=== PATIENT | male | born 1965 | race Caucasian/White ===

== ENCOUNTER 2017-10-09 11:21 | Inpatient (IN) | payer SELFPAY ==
[~2017-10-09] VITALS: Ht 185.4 cm; Wt 110.0 kg
--- NOTE | 2017-10-09 11:36 | PD ---
HPI Chief Complaint: Injury Time Seen by Provider: 11:34 Travel History International Travel<30 days: No Contact w/Intl Traveler<30days: No History of Present Illness HPI 52-year-old male presents to the ED via EMS for evaluation of 1010 left lower leg pain. Onset just before arrival after the patient was pushing a tool chest , lost control and it fell, pinning his leg between the bumper of a car. 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 He denies numbness, tingling, weakness of the extremity. He has not been ambulatory since the accident. He is unsure of the date of his last tetanus immunization. [facility] Social History Tobacco Use: No Allergies-Medications (Allergen,Severity, Reaction): Coded Allergies: Penicillins (Verified Allergy, Unknown, 10/09/17) Review of Systems Except as stated in HPI: all other systems reviewed are Neg Physical Exam Narrative GENERAL: Well-nourished, well-developed white male in no acute distress. SKIN: Focused skin assessment warm/dry. 4 cm laceration on the midline of the proximal tib-fib. No active bleeding. HEAD: Normocephalic. EYES: No scleral icterus. No injection or drainage. NECK: Supple, trachea midline. No JVD or lymphadenopathy. CARDIOVASCULAR: Regular rate and rhythm without murmurs, gallops, or rubs. RESPIRATORY: Breath sounds clear and equal bilaterally. No accessory muscle use. GASTROINTESTINAL: Abdomen soft, non-tender, nondistended. MUSCULOSKELETAL: No cyanosis, or edema. FOCUSED LEFT LOWER EXTREMITY EXAM: 2+ DP pulse. Patient is able to wiggle the toes. Sensation intact to light touch distally. Flexion of the ankle elicits pain in the tib-fib. Compartments of the calf are soft. Knee nontender. Exam somewhat limited by patient's pain. BACK: Nontender without obvious deformity. No CVA tenderness. Data Data Last Documented VS Vital Signs Date Time Temp Pulse Resp B/P (MAP) Pulse Ox O2 Delivery O2 Flow Rate FiO2 10/09/17 12:01 89 18 100 Room Air 10/09/17 11:47 97.9 161/103 (122) Orders Orders Iv Access Insert/Monitor (10/09/17 11:32) Oximetry (10/09/17 11:32) Ice/Cold Pack (10/09/17 11:32) Ecg Monitoring (10/09/17 11:32) Ondansetron Inj (Zofran Inj) (10/09/17 11:45) Sodium Chloride 0.9% Flush (Ns Flush) (10/09/17 11:45) Hydromorphone Pf Inj (Dilaudid Pf Inj) (10/09/17 11:45) Sodium Chlor 0.9% 1000 Ml Inj (Ns 1000 M (10/09/17 11:45) NPO (10/09/17 11:32) Lidocaine 1% Inj (Xylocaine 1% Inj) (10/09/17 11:45) Tibia/Fibula (Ap/Lat) (10/09/17 11:32) Hydromorphone Pf Inj (Dilaudid Pf Inj) (10/09/17 11:45) Tetanus/Diphtheria Tox Adult (Tetanus/Di (10/09/17 12:00) Lidocaine 1% Inj (Xylocaine 1% Inj) (10/09/17 12:15) Electrocardiogram (10/09/17 12:16) Complete Blood Count With Diff (10/09/17 12:16) Comprehensive Metabolic Panel (10/09/17 12:16) Prothrombin Time / Inr (Pt) (10/09/17 12:16) Act Partial Throm Time (Ptt) (10/09/17 12:16) Urinalysis - C+S If Indicated (10/09/17 12:16) Type And Screen (10/09/17 12:16) Chest, Single Ap (10/09/17 12:16) Gentamicin Inj (Gentamicin Inj) (10/09/17 12:30) Cefazolin 2 Gm Premix (Ancef 2 Gm Premix (10/09/17 12:30) Consult Orthopedic (10/09/17 ) Labs Laboratory Tests Test 10/09/17 12:26 MDM Medical Decision Making Medical Screen Exam Complete: Yes Emergency Medical Condition: Yes Differential Diagnosis Tib-fib fracture versus laceration versus open fracture versus compartment syndrome versus need for tetanus immunization versus other Narrative Course 52-year-old male presents to the ED via EMS for evaluation of 10/10 left lower leg pain. Onset just before arrival after the patient was pushing a tool chest , lost control and it fell, pinning his leg between the bumper of a car. 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 Unsure of last tetanus immunization. Vitals reviewed. Patient's tachycardic and hypertensive on presentation. Physical exam reveals a 4 cm open wound of the anterior aspect of the proximal tibia. The pelvis of the calf are soft. Pain elicited with attempted flexion of the ankle. 2+ DP pulse, sensation intact to light touch distally. IV was established. Patient was administered 0.5 mg Dilaudid, 4 mg Zofran and 1 L normal saline. Tetanus immunization was updated. Patient was admitted nothing by mouth. X-ray left tib-fib reveals comminuted proximal tibial fracture per radiology read. I explored the wound and anterior aspect of the tibia and this is an open fracture. I discussed the results of the x-ray with the patient as well as the need for surgical intervention. Patient is agreeable with the plan. Preoperative testing and lab work ordered and pending. EKG rate 89, sinus rhythm. CT interval 169, QRS 112, QTC 408. Incomplete RBBB. Q waves V1V2. Reviewed by Dr. Stone. Patient was administered 2 mg Ancef and 80 mg gentamicin IV. Patient ate eggs and grits with a cup of coffee around 7 AM today. I spoke with Dr. Smith who requests the patient stay nothing by mouth. He plans surgery today. Dr. Stone spoke with Dr. Gotti who states this patient is appropriate for medicine admission. I spoke with Dr. Olson who agrees to accept the patient to the medicine service. Please see medicine and orthopedic notes for disposition. Marjorie Roth Oct 09, 2017 11:36
[2017-10-09] MEDS ORDERED: HYDROmorphone HCL PF 2 MG/ML VIAL IV PUSH ONE ×2 (11:45→14:00)
[2017-10-09] MEDS ORDERED: HYDROmorphone HCL PF 1 MG/ML VIAL IVS ONE (11:45)
[2017-10-09] MEDS ORDERED: LIDOCAINE HCL 1% 30 ML VIAL INFIL ONE (11:45)
[2017-10-09] MEDS ORDERED: TETANUS/DIPHTHERIA TOXOID ADULT 0.5 ML VIAL IM ONE ×2 (11:45→12:00)
[2017-10-09] MEDS ORDERED: SODIUM CHLORIDE 0.9% FLUSH 10 ML FLUSH IVF PRN (11:45)
[2017-10-09] MEDS ORDERED: SODIUM CHLOR 0.9% 1000 ML INJ 1,000 ML IV ONE (11:45)
[2017-10-09] MEDS ORDERED: ONDANSETRON HCL 4 MG/2 ML VIAL IVP ONE (11:45)
[2017-10-09 11:46] VITALS: RESP 18; O2SAT 98
[2017-10-09 11:47] VITALS: BP 161/103; PULSE 98; RESP 18; TEMP 97.9; O2SAT 98
[2017-10-09] MEDS ORDERED: SUCCINYLCHOLINE CHLORIDE 200 MG/10 ML VIAL IV ONE (12:00)
[2017-10-09] MEDS ORDERED: PROPOFOL 200 MG/20 ML AMP IV ONE (12:00)
[2017-10-09] MEDS ORDERED: ONDANSETRON HCL 4 MG/2 ML VIAL IV ONE (12:00)
[2017-10-09] MEDS ORDERED: LIDOCAINE HCL 1% PF 5 ML SYRINGE OTHER ONE (12:00)
[2017-10-09] MEDS ORDERED: KETOROLAC TROMETHAMINE 30 MG/ML (IVP) VIAL IV PUSH ONE (12:00)
[2017-10-09] MEDS ORDERED: DEXAMETHASONE SOD PHOS 4 MG/ML VIAL IV ONE (12:00)
[2017-10-09] MEDS ORDERED: LACTATED RINGER'S 1000 ML INJ 1,000 ML IV ONE (12:00)
[2017-10-09] MEDS ORDERED: LIDOCAINE HCL 1% 20 ML VIAL INFIL ONE (12:15)
--- NOTE | 2017-10-09 12:15 | RADRPT ---
EXAM DATE/TIME: 10/09/2017 11:52 [facility] COMPARISON: No previous studies available for comparison. INDICATIONS : Left lower leg pain; pinned between car and tool box. MEDICAL HISTORY : None. SURGICAL HISTORY : None. ENCOUNTER: Initial ACUITY: 1 day PAIN SCORE: 10/10 LOCATION: Left lower leg. FINDINGS: 4 views of the left lower leg reveal an acute comminuted fracture involving the proximal tibial metad iaphysis. No significant angulation or distraction. No intra-articular extension. The fibula is intac t. No radiopaque foreign bodies. CONCLUSION: Acute comminuted roximal tibial fracture. Aamir Maloney Jr., MD on October 09, 2017 at 12:11 Board Certified Radiologist. This report was verified electronically.
[2017-10-09] MEDS ORDERED: ceFAZolin 2 GM PREMIX 50 ML IV ONE (12:30)
[2017-10-09] MEDS ORDERED: GENTAMICIN INJ 80 MG in SODIUM CHLORIDE 0.9% INJ 100 ML IV ONE (12:30)
[2017-10-09 12:45] LABS: AUTOMATED NEUTROPHIL # 11.4 TH/MM3 (1.8-7.7); BASOPHIL % 0.3 % (0.0-2.0); EOSINOPHIL # 0.1 TH/MM3 (0-0.4); HEMATOCRIT 32.6 % (39.0-51.0); HEMOGLOBIN 11.3 GM/DL (13.0-17.0); LYMPH % 9.1 % (9.0-44.0); LYMPHOCYTE # 1.3 TH/MM3 (1.0-4.8); MEAN CELL VOLUME 85.4 FL (80.0-100.0); MEAN CORPUSCULAR HEMOGLOBIN 29.5 PG (27.0-34.0); MEAN CORPUSCULAR HGB CONC 34.6 % (32.0-36.0); MEAN PLATELET VOLUME 7.2 FL (7.0-11.0); NEUT % 82.6 % (16.0-70.0); PLATELET COUNT 221 TH/MM3 (150-450); RED BLOOD COUNT 3.82 MIL/MM3 (4.50-5.90); RED CELL DISTRIBUTION WIDTH 13.7 % (11.6-17.2); WHITE BLOOD COUNT 13.8 TH/MM3 (4.0-11.0)
[2017-10-09 12:54] LABS: INTERNATIONAL NORMALIZED RATIO 1.1 RATIO; PROTHROMBIN TIME - PATIENT 10.8 SEC (9.8-11.6)
[2017-10-09] MEDS ORDERED: ACETAMINOPHEN 325 MG TAB PO PRN (13:15)
[2017-10-09] MEDS ORDERED: LACTULOSE SYRUP 20 GM/30 ML CUP PO PRN (13:15)
[2017-10-09] MEDS ORDERED: HYDROmorphone HCL PF 1 MG/ML VIAL IV PUSH PRN ×2 (13:15)
[2017-10-09] MEDS ORDERED: oxyCODONE/ACETAMINOPHEN 10 MG/325 MG TAB PO PRN (13:15)
[2017-10-09] MEDS ORDERED: SODIUM CHLORIDE 0.9% FLUSH 10 ML FLUSH IV FLUSH PRN (13:15)
[2017-10-09] MEDS ORDERED: MAGNESIUM HYDROXIDE SUSP 30 ML CUP PO PRN (13:15)
[2017-10-09] MEDS ORDERED: HYDROmorphone HCL 2 MG TAB PO PRN (13:15)
[2017-10-09] MEDS ORDERED: SENNOSIDES 8.6 MG TAB PO PRN (13:15)
[2017-10-09] MEDS ORDERED: oxyCODONE/ACETAMINOPHEN 5 MG/325 MG TAB PO PRN (13:15)
[2017-10-09] MEDS ORDERED: NALOXONE HCL 0.4 MG/ML AMP IV PUSH PRN ×2 (13:15)
[2017-10-09] MEDS ORDERED: ONDANSETRON HCL 4 MG/2 ML VIAL IVP PRN (13:15)
[2017-10-09] MEDS ORDERED: BISACODYL 10 MG SUPP RECTAL PRN (13:15)
[2017-10-09 13:21] VITALS: BP 139/83; PULSE 93; RESP 18; O2SAT 98
[2017-10-09 13:28] LABS: ALBUMIN 2.7 GM/DL (3.4-5.0); BICARBONATE 18.9 MEQ/L (21.0-32.0); CALCIUM 6.2 MG/DL (8.5-10.1); CREATININE 0.68 MG/DL (0.60-1.30)
--- NOTE | 2017-10-09 13:28 | HHI.HP ---
[facility] Service [facility] Primary Care Physician No Primary Care Physician Admission Diagnosis left open comminuted proximal tibia fracture Diagnoses: Chief Complaint: left leg pain after accident Travel History International Travel<30 Days: No Contact w/Intl Traveler <30 Da: No Traveled to Known Affected Are: No History of Present Illness The patient is a very pleasant 52-year-old male without significant past medical history presents to the ED via EMS for evaluation of 10/10 left lower leg pain. Onset just before arrival after the patient was pushing a tool cart, lost control and it fell, pinning his leg between the bumper of a car. 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 He denies numbness, tingling, weakness of the extremity. He has not been ambulatory since the accident. He is unsure of the date of his last tetanus immunization. Patient can wiggle his toes without problems. He received Dilaudid IV pain medications in the emergency room and pain is currently controlled. He denies any nausea, vomiting , diarrhea or constipation. No urinary complaints. No chest pain or shortness of breath. No palpitations. No fever or chills. Review of Systems Except as stated in HPI: all other systems reviewed are Neg Past Family Social History Past Medical History Denies any medical problems and currently is not taking any medications Past Surgical History Denies surgeries in the past Allergies: Coded Allergies: Penicillins (Verified Allergy, Unknown, 10/09/17) Family History Hypertension runs in family Social History Denies tobacco use, illicit drug use. Occasional alcohol use. Physical Exam Vital Signs Vital Signs Date Time Temp Pulse Resp B/P (MAP) Pulse Ox O2 Delivery O2 Flow Rate FiO2 10/09/17 13:21 93 18 139/83 (101) 98 Room Air 10/09/17 12:01 89 18 100 Room Air 10/09/17 11:47 97.9 98 18 161/103 (122) 98 Room Air 10/09/17 11:46 18 98 Room Air Physical Exam GENERAL: This is a well-nourished, well-developed patient, in no apparent distress. SKIN: No rashes, ecchymoses or lesions. Cool and dry. HEAD: Atraumatic. Normocephalic. No temporal or scalp tenderness. EYES: Pupils equal round and reactive. Extraocular motions intact. No scleral icterus. No injection or drainage. ENT: Nose without bleeding, purulent drainage or septal hematoma. Throat without erythema, tonsillar hypertrophy or exudate. Uvula midline. Airway patent. NECK: Trachea midline. No JVD or lymphadenopathy. Supple, nontender, no meningeal signs. CARDIOVASCULAR: Regular rate and rhythm without murmurs, gallops, or rubs. RESPIRATORY: Clear to auscultation. Breath sounds equal bilaterally. No wheezes , rales, or rhonchi. GASTROINTESTINAL: Abdomen soft, non-tender, nondistended. No hepato-splenomegaly , or palpable masses. No guarding. MUSCULOSKELETAL: Extremities without clubbing, cyanosis, or edema. No joint tenderness, effusion, or edema noted. No calf tenderness. Negative Homans sign bilaterally. NEUROLOGICAL: Awake and alert. Cranial nerves II through XII intact. Motor and sensory grossly within normal limits. Five out of 5 muscle strength in all muscle groups. Normal speech. Laboratory Laboratory Tests Test 10/09/17 12:26 White Blood Count 13.8 Red Blood Count 3.82 Hemoglobin 11.3 Hematocrit 32.6 Mean Corpuscular Volume 85.4 Mean Corpuscular Hemoglobin 29.5 Mean Corpuscular Hemoglobin Concent 34.6 Red Cell Distribution Width 13.7 Platelet Count 221 Mean Platelet Volume 7.2 Neutrophils (%) (Auto) 82.6 Lymphocytes (%) (Auto) 9.1 Monocytes (%) (Auto) 7.0 Eosinophils (%) (Auto) 1.0 Basophils (%) (Auto) 0.3 Neutrophils # (Auto) 11.4 Lymphocytes # (Auto) 1.3 Monocytes # (Auto) 1.0 Eosinophils # (Auto) 0.1 Basophils # (Auto) 0.0 CBC Comment DIFF FINAL Differential Comment Prothrombin Time 10.8 Prothromb Time International Ratio 1.1 Activated Partial Thromboplast Time 23.0 Result Diagram: 10/09/17 1226 Caprini VTE Risk Assessment Caprini VTE Risk Assessment: Mod/High Risk (score >= 2) Caprini Risk Assessment Model Point Value = 1 Point Value = 2 Point Value = 3 Point Value = 5 Age 41-60 Minor surgery BMI > 25 kg/m2 Swollen legs Varicose veins or History of unexplained or recurrent spontaneous Oral contraceptives or hormone replacement Sepsis (< 1 month) Serious lung disease, including pneumonia (< 1 month) Abnormal pulmonary function Acute myocardial infarction Congestive heart failure (< 1 month) History of inflammatory bowel disease Medical patient at bed rest Age 61-74 Arthroscopic surgery Major open surgery (> 45 min) Laparoscopic surgery (> 45 min) Malignancy Confined to bed (> 72 hours) Immobilizing plaster cast Central venous access Age >= 75 History of VTE Family history of VTE Factor V Leiden Prothrombin [id number] Lupus anticoagulant Anticardiolipin antibodies Elevated serum homocysteine Heparin-induced thrombocytopenia Other congenital or acquired thrombophilia Stroke (< 1 month) Elective arthroplasty Hip, pelvis, or leg fracture Acute spinal cord injury (< 1 month) Prophylaxis Regimen Total Risk Factor Score Risk Level Prophylaxis Regimen 0-1 Low Early ambulation 2 Moderate Order ONE of the following: *Sequential Compression Device (SCD) *Heparin 5000 units SQ BID 3-4 Higher Order ONE of the following medications: *Heparin 5000 units SQ TID *Enoxaparin/Lovenox 40 mg SQ daily (WT < 150 kg, CrCl > 30 mL/min) *Enoxaparin/Lovenox 30 mg SQ daily (WT < 150 kg, CrCl > 10-29 mL/min) *Enoxaparin/Lovenox 30 mg SQ BID (WT < 150 kg, CrCl > 30 mL/min) AND/OR *Sequential Compression Device (SCD) 5 or more Highest Order ONE of the following medications: *Heparin 5000 units SQ TID (Preferred with Epidurals) *Enoxaparin/Lovenox 40 mg SQ daily (WT < 150 kg, CrCl > 30 mL/min) *Enoxaparin/Lovenox 30 mg SQ daily (WT < 150 kg, CrCl > 10-29 mL/min) *Enoxaparin/Lovenox 30 mg SQ BID (WT < 150 kg, CrCl > 30 mL/min) AND *Sequential Compression Device (SCD) Assessment and Plan Assessment and Plan Very pleasant 52-year-old male without significant past medical history with: Left open comminuted proximal tibia fracture X-ray reviewed and imaging discussed with ED physician Plan for surgical repair by Dr. Smith orthopedic doctor lambert Galeas n.p.o. Start IV fluids Monitor vital signs Pain medications p.o. and IV for pain scale DVT prophylaxis chemical prophylaxis per surgeon. Apply SCD/teds on unaffected leg -on right leg Discussed Condition With Patient, nurse, ED PA/physician Physician Certification 2 Midnight Certification Type: Admission for Inpatient Services Order for Inpatient Services The services are ordered in accordance with Medicare regulations or non- Medicare payer requirements, as applicable. In the case of services not specified as inpatient-only, they are appropriately provided as inpatient services in accordance with the 2-midnight benchmark. Estimated LOS (days): 3 days is the estimated time the patient will need to remain in the hospital, assuming treatment plan goals are met and no additional complications. Post-Hospital Plan: Home Damaris Olson MD Oct 09, 2017 13:28
[2017-10-09 13:30] LABS: TOTAL BILIRUBIN ADULT 0.5 MG/DL (0.2-1.0); TOTAL PROTEIN 5.1 GM/DL (6.4-8.2)
[2017-10-09 13:36] LABS: CALCIUM-PROTEIN CORRECTED 7.1 MG/DL (8.5-10.1)
--- NOTE | 2017-10-09 13:45 | RADRPT ---
EXAM DATE/TIME: 10/09/2017 12:54 [facility] COMPARISON: No previous studies available for comparison. INDICATIONS : Evaluate for pneumonia, pneumothorax or communicable disease. Preop chest for repair of left lower le g fracture MEDICAL HISTORY : left lower leg fracture SURGICAL HISTORY : None. ENCOUNTER: Initial ACUITY: 1 day PAIN SCORE: 0/10 LOCATION: Bilateral chest FINDINGS: A single view of the chest demonstrates the lungs to be symmetrically aerated without evidence of mas s, infiltrate or effusion. Mild cardiomegaly without pulmonary vascular engorgement. Osseous structu res are intact. CONCLUSION: No acute disease. Aamir Maloney Jr., MD on October 09, 2017 at 13:42 Board Certified Radiologist. This report was verified electronically.
[2017-10-09] MEDS ORDERED: GENTAMICIN SULFATE 80 MG/2 ML VIAL ONE (14:24)
[2017-10-09] MEDS ORDERED: VANCOMYCIN HCL 1000 MG VIAL ONE (14:24)
[2017-10-09] MEDS ORDERED: BUPIVACAINE/EPINEPHRINE 0.25% 50 ML VIAL ONE (14:25)
[2017-10-09] MEDS ORDERED: CHLORHEXIDINE GLUCONATE 2 % 1 PACK (2 CLOTHS) TOPICAL PRN (14:45)
[2017-10-09] MEDS ORDERED: POVIDONE IODINE 5% (ANTISEPSIS KIT) 4 APPLICATIONS EACH NARE PRN (14:45)
[2017-10-09] MEDS ORDERED: SODIUM CHLORID 0.9% 500 ML IV PRN (14:45)
[2017-10-09] MEDS ORDERED: LACTATED RINGER'S 1000 ML IV PRN (14:45)
[2017-10-09] MEDS ORDERED: INSULIN HUMAN REGULAR 1,000 UNITS/10 ML VIAL SQ PRN (14:45)
[2017-10-09] MEDS ORDERED: METOPROLOL TARTRATE 25 MG TAB PO PRN (14:45)
[2017-10-09] MEDS ORDERED: ENOXAPARIN SODIUM 40 MG/0.4 ML SYRINGE SQ SCH (15:00)
[2017-10-09] MEDS ORDERED: DEXAMETHASONE SOD PHOS 4 MG/ML VIAL ONE (15:28)
[2017-10-09 16:00] VITALS: BP 150/87; PULSE 85; RESP 20; TEMP 97.3; O2SAT 96
[2017-10-09] MEDS ORDERED: diphenhydrAMINE HCL 25 MG CAP PO PRN (16:00)
[2017-10-09] MEDS ORDERED: ERGOCALCIFEROL (VIT D2) 50,000 UNIT CAP PO SCH (16:00)
[2017-10-09] MEDS ORDERED: MORPHINE SULFATE 4 MG/ML INJ IV PUSH PRN (16:00)
--- NOTE | 2017-10-09 16:04 | PD.OP ---
cc: Ramirez Eddy MD Operative Report Date of Surgery: Oct 09, 2017 Preoperative Diagnosis: Open left tibia shaft fracture Postoperative Diagnosis: Procedure: Irrigation and debridement of open left tibia fracture, intramedullary nail fixation left tibia Anesthesia: Gen. Surgeon: Ramirez Eddy Levers Lace Machine Operator(s): Javier Simeon PA-C The surgical procedure was assisted by my physician assistant men's lacrosse coach. My P.A. presence was necessary throughout this case for the manipulation and positioning of the surgical extremity. My P.A. was assisting me throughout the duration of this procedure. The skill set of a physician assistant men's lacrosse coach was medically necessary to complete this procedure. During the surgical case the equipment service technician was working at the back table and the physician assistant men's lacrosse coach was directly assisting me. Operation and Findings: Implants: synthes [9]mm x [330]mm tibial nail Plan of activity: Toe-touch weight 3 weeks, then 50% weight 3 weeks Patient was seen and examined preoperatively. An informed consent was obtained from patient after detailed discussion of risk and benefits. Risks of surgery include bleeding, infection, painful hardware, nonunion, malunion, leg length discrepancy, need for hardware removal, and medical complications associated with anesthesia including blood clots, stroke, heart attack, and were discussed. Operative site was marked. Patient was brought to the operating room placed on or table. Patient received IV antibiotics and was given IV sedation GETA. Operative leg was prepped with alcohol Hibiclens and draped in usual sterile fashion. Timeout procedure was performed Procedure began with irrigation debridement of open fracture. There was a 2 inch open wound directly over the fracture site. Fracture was cleaned with curettes. There were several small pieces of bone which were excised. Overall the wound appeared to be very clean. After debridement of soft tissue and bone the wound was thoroughly irrigated with 3 L of sterile saline. Next attention was turned towards reduction of fracture. 2 small incisions were made around the distal fracture site. A percutaneous clamp was placed. Traction was applied. Fracture was reduced. There was comminution of the fracture. The fracture reduced and excellent alignment was achieved. Fracture clamp was used to aid in reduction. Next a 3 cm incision was made proximal to the patella. Quadriceps tendon was split in line with fibers. Cannulas were placed in the patellofemoral joint to protect the articular surface at all times. A guidepin was placed into the tibia and advanced in the tibial canal. Fluoroscopy was used to confirm appropriate guidepin placement. An opening reamer was used to open the tibial canal. A ball-tipped guidewire was advanced down the tibial canal. Guidepin was passed across the fracture site into the center of the distal tibia. Fluoroscopy confirmed guidepin placement. The nail length was now measured. The fracture was now held in a reduced position and the canal was reamed. The canal was reamed up to appropriate size. A Synthes nail was now selected. Next the nail was fully seated. Using perfect [place] tribes technique 2 distal interlocking screws were placed. Using the insertion handle as a guide 2 proximal interlocking screws were placed. Fluoroscopy confirmed excellent of fracture with well-placed hardware. Incisions and the knee joint were thoroughly irrigated with sterile saline. Fascia was closed with #1 Vicryl, subcutaneous tissues closed with 3-0 Vicryl and skin was closed with tomasa. The traumatic wound was closed with 3-0 PDS and 3-0 nylon. Sterile dressings were applied. Patient was awakened and transferred to recovery in stable condition. Ramirez Eddy MD Oct 09, 2017 16:04
[2017-10-09] MEDS ORDERED: diphenhydrAMINE HCL 50 MG/ML VIAL ONE (16:27)
[2017-10-09] MEDS ORDERED: DO NOT ADM ANY ANTICOAGULANT DRUGS PRN (16:28)
[2017-10-09] MEDS ORDERED: ACETAMINOPHEN 1000 MG/100 ML 100 ML IV ONE (16:34)
--- NOTE | 2017-10-09 16:37 | RADRPT ---
EXAM DATE/TIME: 10/09/2017 15:48 [facility] COMPARISON: TIBIA/FIBULA LEFT (AP/LAT), October 09, 2017, 11:52. INDICATIONS : ORIF of the left tibia. MEDICAL HISTORY : None. SURGICAL HISTORY : None. ENCOUNTER: Subsequent ACUITY: 1 day PAIN SCORE: Non-responsive. LOCATION: Left tibia FINDINGS: Two view examination of the left tibia demonstrates a comminuted, spiral fracture through the proxima l tibial diaphysis is been repaired with a medullary magda and osseous screws. Fracture fragments are i n adequate anatomic alignment CONCLUSION: Successful open reduction and internal fixation of the comminuted proximal diaphyseal left tibia l fracture. Bola Cates MD on October 09, 2017 at 16:33 Board Certified Radiologist. This report was verified electronically.
[2017-10-09] MEDS ORDERED: MORPHINE SULFATE 4 MG/ML INJ ONE (16:46)
[2017-10-09] MEDS ORDERED: *MEPERIDINE 25 MG INJ VIAL PERIprocedural Use ONLY ONE (16:55)
[2017-10-09] MEDS ORDERED: *morphine SULFATE 8 MG/ML PERIprocedure ONLY ONE (16:58)
[2017-10-09] MEDS: LACTATED RINGER'S 1000 ML INJ 1,000 ML IV SCH (17:15)
[2017-10-09] MEDS ORDERED: ACETAMINOPHEN 1000 MG/100 ML 100 ML IV PRN (17:45)
[2017-10-09] MEDS ORDERED: diphenhydrAMINE HCL 50 MG/ML VIAL IV ONE (17:45)
--- NOTE | 2017-10-09 17:49 | MB ---
cc: GINA HAIDER DATE OF CONSULTATION: 10/09/2017 REASON FOR CONSULTATION: Open left tibia fracture. HISTORY Juwan is a 52-year-old male who was working at the [employer]. 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 He was pushing a heavy tool cart. He got pinned between the car and a large tool cart. He had immediate left leg pain. He is unable to stand or ambulate. He presented emergency room. X-rays examination reveals a open left tibia fracture. His only complaint is his left leg. He denies any other injuries. Evaluation revealed an open left tibia fracture. His only complaint is his left leg. He had no loss of consciousness. Pain is worse with movement. PAST MEDICAL HISTORY ILLNESSES None ALLERGIES Penicillin. MEDICATIONS Please see EMR for list of inpatient medications SOCIAL HISTORY The patient denies alcohol back. He denies alcohol, tobacco or drug abuse. 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 FAMILY HISTORY Noncontributory. REVIEW OF SYSTEMS The patient denies headache, visual changes, neck pain, chest pain, shortness of breath, abdominal pain, nausea or recent weight loss, fever, chills, numbness 10 of extremities complains of left leg pain. Pain is worse with movement. PHYSICAL EXAMINATION The patient is a well-developed, well-nourished 52-year-old male. He is awake and alert. He is alert and x3. Appears well-developed, well-nourished. Vital signs: Temperature 97.9, pulse 98, respirations 18, blood pressure 161/103, O2 sat 90% on room air. HEAD, EYES, EARS, NOSE, AND THROAT: Head: The patient is normocephalic. Pupils are equal. NECK: Soft, nontender. Trachea is midline. ABDOMEN: Soft, nontender, nondistended. EXTREMITIES: Examination of bilateral upper extremities reveals no pain with shoulder, elbow or wrist motion. He has intact sensation all fingers. Radial pulses palpable. Skin is intact both hands. Examination of right leg reveals no pain with hip, knee or ankle motion. Skin is intact. Process pedis pulses palpable. Sensation is intact. Right foot. Examination of left leg reveals no tenderness on his hip or thigh. He is diffusely tender around the proximal tibia and calf. Dorsalis pedis pulses palpable. He has he has intact sensation left foot. He has minimal pain with gentle passive and active range of motion of his toes. Ankle. There is a 2-inch laceration over the proximal medial tibia over the fracture site. LABORATORY DATA The patient is a white blood cell count of 13.8, hemoglobin of 11.3, hematocrit 36 32.6. INR is 1.1. BUN is 12 and creatinine is 0.68. X-RAYS X-rays of left tibia were reviewed x-rays reveal a mildly comminuted proximal tibia shaft fracture. Fracture extends down to the mid shaft. The tibia. IMPRESSION Open left tibia fractures. PLAN The option discussed with the patient at this point I would recommend irrigation debridement of open left tibia fracture with possible intramedullary fixation of left tibia versus possible external fixation. If the wound has significant contamination, plan will be for closed reduction and external fixation. Risks of surgery include bleeding, infection, injury to blood vessels, compartment syndrome, infection as well as medical complications including blood clot, stroke, heart attack and . All questions were answered. I will plan on surgery today. The surgical procedure was assisted by my physician commercial lines assistant. My P.A. presence was necessary throughout this case for the manipulation and positioning of the surgical extremity. My P.A. was assisting me throughout the duration of this procedure. The skill set of a physician commercial lines assistant was medically necessary to complete this procedure. During the surgical case the surgical garment assembler was working at the back table and the physician commercial lines assistant was directly assisting me. MD PA Curry/katy /4:31 PM /4:59 PM LIZ
[2017-10-09 20:00] VITALS: BP 163/97; PULSE 99; RESP 15; TEMP 97; O2SAT 97
[2017-10-09 20:17] VITALS: BP 163/97; PULSE 99; RESP 15; TEMP 97.8; O2SAT 97
[2017-10-09] MEDS: SODIUM CHLORIDE 0.9% FLUSH 10 ML FLUSH IV FLUSH SCH (21:00)
[2017-10-09] MEDS: DOCUSATE SODIUM 50 MG/SENNA 8.6 MG TAB PO SCH (21:21)
[2017-10-09] MEDS: KETOROLAC TROMETHAMINE 30 MG/ML (IVP) VIAL IVP SCH (21:21)
[2017-10-09] MEDS: ceFAZolin 2 GM PREMIX 50 ML IV SCH (21:22)
[2017-10-09] MEDS: GENTAMICIN 80 MG PREMIX 100 ML IV SCH (21:22)
[2017-10-09] MEDS: ACETAMINOPHEN/HYDROcodone 325 MG/10 MG TAB PO PRN (22:56)
[2017-10-10] VITALS (8 sets, daily range): BP systolic 122–154; BP diastolic 68–86; PULSE 77–88; RESP 15–18; TEMP 97–98.7; O2SAT 96–98
[2017-10-10] MEDS: ACETAMINOPHEN/HYDROcodone 325 MG/10 MG TAB PO PRN ×6 (04:39→21:02)
[2017-10-10] MEDS: GENTAMICIN 80 MG PREMIX 100 ML IV SCH ×3 (06:24→22:47)
[2017-10-10] MEDS: ceFAZolin 2 GM PREMIX 50 ML IV SCH ×3 (06:24→21:55)
--- NOTE | 2017-10-10 06:50 | PD.ORT.PN ---
Subjective Subjective Remarks Resting comfortably with no new complaints. Objective Vitals Vital Signs Date Time Temp Pulse Resp B/P (MAP) Pulse Ox O2 Delivery O2 Flow Rate FiO2 10/09/17 20:17 97.8 99 15 163/97 (119) 97 10/09/17 17:15 98.6 80 15 131/60 (83) 94 Room Air 10/09/17 17:00 83 14 161/71 (101) 95 Room Air 10/09/17 16:45 83 16 170/75 (106) 94 Room Air 10/09/17 16:30 87 19 148/72 (97) 98 Room Air 10/09/17 16:24 97.5 86 14 166/108 (127) 95 Room Air 10/09/17 16:00 97.3 85 20 150/87 (108) 96 10/09/17 13:21 93 18 139/83 (101) 98 Room Air 10/09/17 12:01 89 18 100 Room Air 10/09/17 11:47 97.9 98 18 161/103 (122) 98 Room Air 10/09/17 11:46 18 98 Room Air I/O 10/09/17 10/09/17 10/09/17 10/10/17 10/10/17 10/10/17 07:00 15:00 23:00 07:00 15:00 23:00 Intake Total 1300 ml Output Total 3600 ml Balance -2300 ml Intake IV Total 1300 ml Output Urine Total 500 ml Estimated Blood Loss 100 ml Other 3000 ml Result Diagram: 10/09/17 1226 10/09/17 1226 Other Results Laboratory Tests Test 10/09/17 12:26 Prothromb Time International Ratio 1.1 RATIO Prothrombin Time 10.8 SEC (9.8-11.6) Imaging Last 24 hours Impressions Chest X-Ray 10/09/17 1216 Signed Impressions: Service Date/Time: Monday, October 09, 2017 12:54 - CONCLUSION: No acute disease. Aamir Maloney Jr., MD Tibia/Fibula X-Ray 10/09/17 1132 Signed Impressions: Service Date/Time: Monday, October 09, 2017 11:52 - CONCLUSION: Acute comminuted roximal tibial fracture. Aamir Maloney Jr., MD Objective Remarks Left lower extremity: No pain with hip range of motion. Dressings intact with mild drainage. Swelling of +3 over tibia distally intact sensation good capillary refills with active dorsiflexion plantar flexion of toes. Palpable dorsalis pedis pulse Assessment & Plan Assessment and Plan Left open tibia IM nail with irrigation debridement POD 1 Physical therapy toe-touch weightbearing left lower extremity Dressing changes beginning POD 2 unless saturated today. IV antibiotics Lovenox Plan for discharge tomorrow We'll not be able to fly for 10-14 days. Home is in [place] Derek Landrum Jr. Oct 10, 2017 06:49
[2017-10-10] MEDS ORDERED: XARE10TA PO (06:53)
[2017-10-10] MEDS ORDERED: HYDR-3583 PO (06:53)
[2017-10-10] MEDS ORDERED: CALCTAB19 PO (06:53)
[2017-10-10 07:23] LABS: AUTOMATED NEUTROPHIL # 9.6 TH/MM3 (1.8-7.7); BASOPHIL % 0.3 % (0.0-2.0); HEMATOCRIT 32.7 % (39.0-51.0); HEMOGLOBIN 11.3 GM/DL (13.0-17.0); LYMPH % 11.6 % (9.0-44.0); LYMPHOCYTE # 1.4 TH/MM3 (1.0-4.8); MEAN CELL VOLUME 85.8 FL (80.0-100.0); MEAN CORPUSCULAR HEMOGLOBIN 29.6 PG (27.0-34.0); MEAN CORPUSCULAR HGB CONC 34.5 % (32.0-36.0); MEAN PLATELET VOLUME 7.4 FL (7.0-11.0); MONO % 8.7 % (0.0-8.0); MONOCYTE # 1.1 TH/MM3 (0-0.9); NEUT % 79.4 % (16.0-70.0); PLATELET COUNT 249 TH/MM3 (150-450); RED BLOOD COUNT 3.81 MIL/MM3 (4.50-5.90); WHITE BLOOD COUNT 12.1 TH/MM3 (4.0-11.0)
[2017-10-10 07:38] LABS: CALCIUM 7.8 MG/DL (8.5-10.1); CREATININE 0.88 MG/DL (0.60-1.30)
[2017-10-10] MEDS: CALCIUM/VITAMIN D 250 MG/125 U TAB PO SCH ×4 (09:00→18:03)
[2017-10-10] MEDS: DOCUSATE SODIUM 50 MG/SENNA 8.6 MG TAB PO SCH ×2 (09:20→20:08)
[2017-10-10] MEDS: KETOROLAC TROMETHAMINE 30 MG/ML (IVP) VIAL IVP SCH ×2 (09:21→20:08)
--- NOTE | 2017-10-10 09:35 | HHI.PR ---
Subjective Remarks Pain is controlled by medications. He also says he takes allergy medications. No fever or chills no nausea vomiting no diarrhea or constipation. Objective Vitals Vital Signs Date Time Temp Pulse Resp B/P (MAP) Pulse Ox O2 Delivery O2 Flow Rate FiO2 10/10/17 04:00 97.0 83 15 133/79 (97) 98 10/10/17 00:00 97.4 80 15 125/68 (87) 97 10/09/17 20:17 97.8 99 15 163/97 (119) 97 10/09/17 20:00 97.0 99 15 163/97 (119) 97 10/09/17 17:15 98.6 80 15 131/60 (83) 94 Room Air 10/09/17 17:00 83 14 161/71 (101) 95 Room Air 10/09/17 16:45 83 16 170/75 (106) 94 Room Air 10/09/17 16:30 87 19 148/72 (97) 98 Room Air 10/09/17 16:24 97.5 86 14 166/108 (127) 95 Room Air 10/09/17 16:00 97.3 85 20 150/87 (108) 96 10/09/17 13:21 93 18 139/83 (101) 98 Room Air 10/09/17 12:01 89 18 100 Room Air 10/09/17 11:47 97.9 98 18 161/103 (122) 98 Room Air 10/09/17 11:46 18 98 Room Air I/O 10/09/17 10/09/17 10/09/17 10/10/17 10/10/17 10/10/17 07:00 15:00 23:00 07:00 15:00 23:00 Intake Total 1300 ml 400 ml Output Total 3600 ml Balance -2300 ml 400 ml Intake Oral 400 ml IV Total 1300 ml Output Urine Total 500 ml Estimated Blood Loss 100 ml Other 3000 ml # Voids 3 Result Diagram: 10/10/17 0701 10/10/17 0701 Imaging Last Impressions Chest X-Ray 10/09/17 1216 Signed Impressions: Service Date/Time: Monday, October 09, 2017 12:54 - CONCLUSION: No acute disease. Aamir Maloney Jr., MD Tibia/Fibula X-Ray 10/09/17 1132 Signed Impressions: Service Date/Time: Monday, October 09, 2017 11:52 - CONCLUSION: Acute comminuted roximal tibial fracture. Aamir Maloney Jr., MD Objective Remarks GENERAL: This is a well-nourished, well-developed patient, in no apparent distress. CARDIOVASCULAR: Regular rate and rhythm without murmurs, gallops, or rubs. RESPIRATORY: Clear to auscultation. Breath sounds equal bilaterally. No wheezes , rales, or rhonchi. GASTROINTESTINAL: Abdomen soft, non-tender, nondistended. No hepato-splenomegaly , or palpable masses. No guarding. MUSCULOSKELETAL: S/P left tib surgery. NEUROLOGICAL: Awake and alert. Cranial nerves II through XII intact. Motor and sensory grossly within normal limits. Five out of 5 muscle strength in all muscle groups. Normal speech. Procedures Open left tibia shaft fracture s/p Irrigation and debridement of open left tibia fracture, intramedullary nail fixation left tibia by Dr Brian garcia on A/P Assessment and Plan Very pleasant 52-year-old male without significant past medical history with: Left open comminuted proximal tibia fracture X-ray reviewed and imaging discussed with ED physician Open left tibia shaft fracture s/p Irrigation and debridement of open left tibia fracture, intramedullary nail fixation left tibia by Dr Brian garcia on . Management per surgeon Monitor vital signs Pain medications p.o. and IV for pain scale Restart home meds diphenhydramine 25 mg po DVT prophylaxis chemical prophylaxis per surgeon. Apply SCD/teds on unaffected leg -on right leg Discussed Condition With Patient, nurse, family at bedside Damaris Olson MD Oct 10, 2017 09:35
[2017-10-10] MEDS ORDERED: ENOXAPARIN SODIUM 40 MG/0.4 ML SYRINGE SQ SCH (16:00)
[2017-10-10] MEDS: SODIUM CHLOR 0.9% 1000 ML INJ 1,000 ML IV SCH (19:05)
[2017-10-10] MEDS: SODIUM CHLORIDE 0.9% FLUSH 10 ML FLUSH IV FLUSH SCH (20:08)
--- NOTE | 2017-10-10 20:32 | HHI.DS ---
Discharge Summary Admission Date Oct 09, 2017 at 12:44 Discharge Date: Oct 11, 2017 Admitting Diagnosis left open comminuted proximal tibia fracture (1) Left tibial fracture ICD Code: S82.202A - Unspecified fracture of shaft of left tibia, initial encounter for closed fracture Procedures Open left tibia shaft fracture s/p Irrigation and debridement of open left tibia fracture, intramedullary nail fixation left tibia by Dr Brian garcia on Brief History - From Admission The patient is a very pleasant 52-year-old male without significant past medical history presents to the ED via EMS for evaluation of 10/10 left lower leg pain. Onset just before arrival after the patient was pushing a tool cart, lost control and it fell, pinning his leg between the bumper of a car. 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 He denies numbness, tingling, weakness of the extremity. He has not been ambulatory since the accident. He is unsure of the date of his last tetanus immunization. Patient can wiggle his toes without problems. He received Dilaudid IV pain medications in the emergency room and pain is currently controlled. He denies any nausea, vomiting , diarrhea or constipation. No urinary complaints. No chest pain or shortness of breath. No palpitations. No fever or chills. CBC/BMP: 10/10/17 0701 10/10/17 0701 Significant Findings Laboratory Tests Test 10/09/17 12:26 10/10/17 07:01 White Blood Count 13.8 TH/MM3 (4.0-11.0) 12.1 TH/MM3 (4.0-11.0) Red Blood Count 3.82 MIL/MM3 (4.50-5.90) 3.81 MIL/MM3 (4.50-5.90) Hemoglobin 11.3 GM/DL (13.0-17.0) 11.3 GM/DL (13.0-17.0) Hematocrit 32.6 % (39.0-51.0) 32.7 % (39.0-51.0) Neutrophils (%) (Auto) 82.6 % (16.0-70.0) 79.4 % (16.0-70.0) Neutrophils # (Auto) 11.4 TH/MM3 (1.8-7.7) 9.6 TH/MM3 (1.8-7.7) Monocytes # (Auto) 1.0 TH/MM3 (0-0.9) 1.1 TH/MM3 (0-0.9) Activated Partial Thromboplast Time 23.0 SEC (24.3-30.1) Total Protein 5.1 GM/DL (6.4-8.2) Albumin 2.7 GM/DL (3.4-5.0) Calcium Level 6.2 MG/DL (8.5-10.1) 7.8 MG/DL (8.5-10.1) Sodium Level 146 MEQ/L (136-145) Potassium Level 3.1 MEQ/L (3.5-5.1) Chloride Level 118 MEQ/L (98-107) Carbon Dioxide Level 18.9 MEQ/L (21.0-32.0) Protein Corrected Calcium 7.1 MG/DL (8.5-10.1) Monocytes (%) (Auto) 8.7 % (0.0-8.0) Random Glucose 122 MG/DL (74-106) Imaging Last Impressions Chest X-Ray 10/09/17 1216 Signed Impressions: Service Date/Time: Monday, October 09, 2017 12:54 - CONCLUSION: No acute disease. Aamir Maloney Jr., MD Tibia/Fibula X-Ray 10/09/17 1132 Signed Impressions: Service Date/Time: Monday, October 09, 2017 11:52 - CONCLUSION: Acute comminuted roximal tibial fracture. Aamir Maloney Jr., MD PE at Discharge GENERAL: This is a well-nourished, well-developed patient, in no apparent distress. CARDIOVASCULAR: Regular rate and rhythm without murmurs, gallops, or rubs. RESPIRATORY: Clear to auscultation. Breath sounds equal bilaterally. No wheezes , rales, or rhonchi. GASTROINTESTINAL: Abdomen soft, non-tender, nondistended. No hepato-splenomegaly , or palpable masses. No guarding. MUSCULOSKELETAL: S/P left tib surgery. NEUROLOGICAL: Awake and alert. Cranial nerves II through XII intact. Motor and sensory grossly within normal limits. Five out of 5 muscle strength in all muscle groups. Normal speech. Pt update on day of discharge Pain in his leg is controlled by meds. Had a BM in the morning. No n/v/d/c/. Denies chest pain or sob. Doing well with PT. Family at bedside. Hospital Course Very pleasant 52-year-old male without significant past medical history with: Left open comminuted proximal tibia fracture X-ray reviewed and imaging discussed with ED physician Patient with Open left tibia shaft fracture s/p Irrigation and debridement of open left tibia fracture, intramedullary nail fixation left tibia by Dr Torres ortho on 10/09/17 . Management per surgeon H/H stable. Monitor vital signs Pain medications per pain scale Restart home meds diphenhydramine 25 mg po DVT prophylaxis chemical prophylaxis per surgeon. Xarelto at DC per surgeon . Apply SCD/teds on unaffected leg -on right leg Improved. Discharged on stable condition to follow up as OP with PCP and consultants Pt Condition on Discharge: Stable Discharge Disposition: Discharge Home Discharge Time: > 30 minutes Discharge Instructions DIET: Follow Instructions for: Heart Healthy Diet Activities you can perform: Non Weight Bearing Other Activity Instructions: affected leg NWB until cleared by ortho Follow up Referrals: Orthopedics - 2 Weeks PCP Follow-up - 2-3 Days New Medications: Calcium Carbonate-Vitamin D (Calcium 600+D 200) 600-200 Mg-Unit Tab 1 TAB PO BID for Nutritional Supplement, #90 TAB 0 Refills Hydrocodone-Acetaminophen (Hydrocodone-Acetaminophen) 10-325 mg Tab 1 TAB PO Q4H PRN for PAIN, #60 TAB 0 Refills Rivaroxaban (Xarelto) 10 Mg Tab 10 MG PO DAILY for Blood Clot Prevention, #14 TAB 0 Refills Walker with Front Wheels (Walker with Front Wheels) 1 Mis Mis EA .XX DIRECTED, #1 0 Refills Wheelchair Elevated Leg (Wheelchair Elevated Leg) 1 Mis Mis EA .XX DIRECTED, #1 0 Refills Sennosides-Docusate Sodium (Gnp Senna Plus 8.6-50 mg) 8.6 Mg-50 Mg Tab 1 TAB PO BID for Constipation, #60 TAB Damaris Olson MD Oct 10, 2017 20:32
[2017-10-10] MEDS ORDERED: diphenhydrAMINE HCL 25 MG CAP PO SCH (21:00)
[2017-10-10] MEDS ORDERED: ZOLPIDEM TARTRATE 5 MG TAB PO PRN (21:00)
[2017-10-10] MEDS: LACTATED RINGER'S 1000 ML INJ 1,000 ML IV SCH (21:58)
--- NOTE | 2017-10-10 22:12 | EKG ---
Date Performed: 10/09/2017 Time Performed: 12:34:00 PTAGE: 52 years EKG: Sinus rhythm INCOMPLETE RIGHT BUNDLE BRANCH BLOCK SEPTAL MYOCARDIAL INFARCTION ABNORMAL ECG NO PREVIOUS TRACING DOCTOR: Jorge Dent Interpretating Date/Time 10/10/2017 22:11:01
[2017-10-11] VITALS: BP 137/82; PULSE 71; RESP 15; TEMP 97.2; O2SAT 96
[2017-10-11] MEDS: ACETAMINOPHEN/HYDROcodone 325 MG/10 MG TAB PO PRN ×5 (03:35→14:31)
[2017-10-11] MEDS: SODIUM CHLOR 0.9% 1000 ML INJ 1,000 ML IV SCH (05:05)
[2017-10-11] MEDS: ceFAZolin 2 GM PREMIX 50 ML IV SCH ×2 (05:35→13:58)
[2017-10-11] MEDS: GENTAMICIN 80 MG PREMIX 100 ML IV SCH ×2 (06:30→13:58)
--- NOTE | 2017-10-11 06:42 | PD.ORT.PN ---
Subjective Subjective Remarks Resting comfortably with no new complaints. Objective Vitals Vital Signs Date Time Temp Pulse Resp B/P (MAP) Pulse Ox O2 Delivery O2 Flow Rate FiO2 10/11/17 00:00 97.2 71 15 137/82 (100) 96 10/10/17 21:58 98 21 10/10/17 20:00 98.7 86 16 154/81 (105) 96 10/10/17 16:05 18 10/10/17 16:00 97.3 83 18 122/73 (89) 98 10/10/17 12:00 97.3 88 18 142/86 (104) 98 10/10/17 10:00 18 10/10/17 09:46 98 10/10/17 08:00 97.9 77 18 143/83 (103) 98 I/O 10/10/17 10/10/17 10/10/17 10/11/17 10/11/17 10/11/17 07:00 15:00 23:00 07:00 15:00 23:00 Intake Total 400 ml 600 ml 500 ml Balance 400 ml 600 ml 500 ml Intake Oral 400 ml 600 ml 500 ml # Voids 3 2 4 # Bowel Movements 0 Result Diagram: 10/10/17 0701 10/10/17 0701 Imaging Last 24 hours Impressions Chest X-Ray 10/09/17 1216 Signed Impressions: Service Date/Time: Monday, October 09, 2017 12:54 - CONCLUSION: No acute disease. Aamir Maloney Jr., MD Tibia/Fibula X-Ray 10/09/17 1132 Signed Impressions: Service Date/Time: Monday, October 09, 2017 11:52 - CONCLUSION: Acute comminuted roximal tibial fracture. Aamir Maloney Jr., MD Objective Remarks Left lower extremity: No pain with hip range of motion. Dressings taken down with incisions healing well with no necrosis. good capillary refills with active dorsiflexion plantar flexion of toes. Palpable dorsalis pedis pulse Assessment & Plan Assessment and Plan Left open tibia IM nail with irrigation debridement POD 2 Physical therapy toe-touch weightbearing left lower extremity Dressing changes beginning today IV antibiotics Lovenox Plan for discharge today We'll not be able to fly for 10-14 days. Home is in [place] He'll follow-up with orthopedics at home at 14-18 days from surgery Derek Landrum Jr. Oct 11, 2017 06:42
[2017-10-11] MEDS ORDERED: WALKER WHEELS/F1 MIS (06:45)
[2017-10-11] MEDS ORDERED: WHEEMIS3 (06:45)
[2017-10-11 07:45] VITALS: BP 152/98; PULSE 70; RESP 18; TEMP 97.2; O2SAT 96
[2017-10-11] MEDS: LACTATED RINGER'S 1000 ML INJ 1,000 ML IV SCH (07:58)
[2017-10-11] MEDS: CALCIUM/VITAMIN D 250 MG/125 U TAB PO SCH ×2 (08:46→12:38)
[2017-10-11 08:47] VITALS: O2SAT 96
[2017-10-11] MEDS: DOCUSATE SODIUM 50 MG/SENNA 8.6 MG TAB PO SCH (08:47)
[2017-10-11] MEDS: SODIUM CHLORIDE 0.9% FLUSH 10 ML FLUSH IV FLUSH SCH (08:47)
[2017-10-11] MEDS ORDERED: PERI PO (10:33)
[2017-10-11 11:16] VITALS: BP 139/81; PULSE 73; RESP 18; TEMP 97.6; O2SAT 97
[2017-10-11] MEDS ORDERED: BACITRACIN OINT 0.9 GM PKT TOP PRN (11:30)
== END 2017-10-11 15:01 | disposition home or self-care (01) | DRG 494 ==
LOC: NEPE 11:21 → NEDA 12:44 → N06B 17:41
PROVIDERS: ADMIT Hospitalist; ATTEND Hospitalist
PROC: 0QSH06Z Reposition Left Tibia with Intramedullary Internal Fixation Device, Open Approach (ICD-10-PCS; principal; 2017-10-09 14:46)
DX: S82.202B Unspecified fracture of shaft of left tibia, initial encounter for open fracture type I or II (principal); I45.10 Unspecified right bundle-branch block; W23.0XXA Caught, crushed, jammed, or pinched between moving objects, initial encounter; Y93.89 Activity, other specified; Y92.39 Other specified sports and athletic area as the place of occurrence of the external cause; Y99.0 Civilian activity done for income or pay
CPT/HCPCS: 71045; 73590; 76000; 80048; 80053; 85025; 85610; 85730; 86850; 86900; 86901; 90471; 90714; 93005; 94150; 96361; 96374; 96375; C1713; C1769; J0131; J0330; J0690; J1100; J1170; J1200; J1580; J1650; J1885; J2175; J2270; J2405; J3010; J3370; J7030; J7120